=== PATIENT | male | born 1985 | race American Indian/Alaskan Native ===

== ENCOUNTER 2020-06-20 13:10 | Emergency (ER) | payer SELFPAY ==
--- NOTE | 2020-06-20 13:31 | Emergency Department Report ---
ED Lower Extremity HPI - General Stated Complaint: LT LEG INJURY Time Seen by Provider: 06/20/20 13:30 Source: patient - History of Present Illness Initial Comments: 35 yr old male presents to ED c.o Left thigh and left knee pain. He states he accidentally fell down some steps, at home, last night. He states he was walking down steps when he missed one and fell. He states he thinks he may have fallen down about 7 steps. He denies head injury. He reports swelling and bruising to left thigh. He states pain is worse with ambulation and movement. He took advil last night but without much relief. Complaint: thigh injury, knee injury -: Sudden - Related Data Previous Rx's Medication Instructions Recorded Last Taken Type Ibuprofen [Motrin] 800 mg PO Q8HR PRN #30 tablet 06/20/20 Unknown Rx Allergies Allergy/AdvReac Type Severity Reaction Status Date / Time No Known Allergies Allergy Verified 06/20/20 13:28 ED Review of Systems ROS: Stated complaint: LT LEG INJURY Other details as noted in HPI Comment: All other systems reviewed and negative Respiratory: denies: cough, shortness of breath, wheezing Cardiovascular: denies: chest pain, palpitations Musculoskeletal: joint swelling, arthralgia, myalgia Neurological: denies: headache, weakness, paresthesias Psychiatric: denies: anxiety, depression Hematological/Lymphatic: denies: easy bleeding, easy bruising ED Past Medical Hx - Medications Home Medications: Home Medications Medication Instructions Recorded Confirmed Last Taken Type Ibuprofen [Motrin] 800 mg PO Q8HR PRN #30 tablet 06/20/20 Unknown Rx ED Physical Exam - General Limitations: No Limitations General appearance: alert, in no apparent distress - Head Head exam: Present: atraumatic, normocephalic, normal inspection - Neck Neck exam: Present: full ROM - Respiratory Respiratory exam: Absent: respiratory distress - Cardiovascular Cardiovascular Exam: Present: regular rate - Expanded Lower Extremity Exam Left Hip exam: Present: normal inspection, full ROM. Absent: tenderness Upper Leg exam: Present: full ROM, tenderness (Moderate lateral thigh), swelling (Mild ), abrasion (very superificial healing abrasion noted anterior thigh). Absent: laceration, ecchymosis, deformity, crepidus, dislocation, erythema Knee exam: Present: normal inspection, full ROM. Absent: tenderness, swelling, abrasion, laceration, ecchymosis, deformity, crepidus, dislocation, erythema, effusion - Neurological Exam Neurological exam: Present: alert, oriented X3, CN II-XII intact, normal gait, abnormal gait (mild limping gait) - Psychiatric Psychiatric exam: Present: normal affect, normal mood - Skin Skin exam: Present: intact ED Course Vital Signs 06/20/20 13:28 Temperature 98 F Pulse Rate 79 Respiratory 16 Rate Blood Pressure 125/82 O2 Sat by Pulse 100 Oximetry ED Lower Extremity MDM - Radiology Data Radiology results: report reviewed Findings [facility] [address] [place] [address] XRay Report Signed Patient: LATA SHARPE JR MR#: [id number] : 1985 Acct:[id number] Age/Sex: 35 / M ADM Date: 06/20/20 Loc: ED Attending Dr: Ordering Physician: MARCELINA SU Date of Service: 06/20/20 Procedure(s): XR femur 2+V LT Accession Number(s): [id number] cc: MARCELINA SU Fluoro Time In Minutes: LEFT FEMUR 4 VIEW(S) INDICATION / CLINICAL INFORMATION: fall down steps/pain COMPARISON: None available. FINDINGS: BONES / JOINT(S): No acute fracture or subluxation. No significant arthritis. SOFT TISSUES: No significant abnormality. ADDITIONAL FINDINGS: None. IMPRESSION: No acute osseous abnormality. Signer Name: Steven Chung MD Signed: 06/20/2020 2:02 PM Workstation Name: [id number] Transcribed By: SS Dictated By: STEVEN CHUNG Electronically Authenticated By: STEVEN CHUNG Signed Date/Time: 06/20/20 1402 DD/ 1401 TD/TT: - Medical Decision Making Xray shows nothing acute. Discussed results, suspected dx and tx plan with patient. Pt expressed understanding of instructions and agreed with plan. Pt was stable a time of discharge. Critical care attestation.: If time is entered above; I have spent that time in minutes in the direct care of this critically ill patient, excluding procedure time. ED Disposition Clinical Impression: Contusion of thigh, left, Knee contusion Disposition: DC- TO HOME OR SELFCARE Is pt being admited?: No Does the pt Need Aspirin: No Condition: Stable Instructions: Contusion Additional Instructions: Rest, ice and elevate leg as often as possible for the next 2-3 days. Take the medication as prescribed. Follow up with Senior Test Analyst in 1-2 weeks if symptoms persist. Return to ED if symptoms changes or worsens in any way. Prescriptions: Ibuprofen [Motrin] 800 mg PO Q8HR PRN #30 tablet PRN Reason: Pain , Severe (7-10) Referrals: LATA LEVIN MD [Staff Physician] - 7-10 days Forms: Work/School Release Form(ED) Time of Disposition: 14:25
[2020-06-20 13:32] VITALS: BP 125/82
--- NOTE | 2020-06-20 14:07 | XRay Report ---
LEFT FEMUR 4 VIEW(S) INDICATION / CLINICAL INFORMATION: fall down steps/pain COMPARISON: None available. FINDINGS: BONES / JOINT(S): No acute fracture or subluxation. No significant arthritis. SOFT TISSUES: No significant abnormality. ADDITIONAL FINDINGS: None. IMPRESSION: No acute osseous abnormality. Signer Name: Anish Chung MD Signed: 06/20/2020 2:02 PM Workstation Name: [id number]
== END 2020-06-20 14:13 | disposition home or self-care (01) ==
LOC: ED 13:10
DX: S70.12XA Contusion of left thigh, initial encounter (principal); S80.00XA Contusion of unspecified knee, initial encounter; Z79.899 Other long term (current) drug therapy; W17.89XA Other fall from one level to another, initial encounter; Y93.89 Activity, other specified; Y92.89 Other specified places as the place of occurrence of the external cause; Y99.8 Other external cause status

== ENCOUNTER 2021-05-10 08:39 | Emergency (ER) | payer SELFPAY ==
--- NOTE | 2021-05-10 11:55 | Emergency Department Report ---
ED General Adult HPI - General Chief complaint: Skin Rash Stated complaint: RASH Time Seen by Provider: 05/10/21 11:47 Source: patient Mode of arrival: Ambulatory Limitations: No Limitations - History of Present Illness Initial comments: Patient is a 36 years old male with no significant past medical history. Patient presented to the ER complaining of generalized skin rash with itching started 3 days ago. Patient stated that he does not know what is causing it. He denied any fever or chills. No difficulty breathing or swallowing. - Related Data Previous Rx's Medication Instructions Recorded Last Taken Type Ibuprofen [Motrin] 800 mg PO Q8HR PRN #30 tablet 06/20/20 Unknown Rx Allergies Allergy/AdvReac Type Severity Reaction Status Date / Time No Known Allergies Allergy Verified 06/20/20 13:28 ED Review of Systems ROS: Stated complaint: RASH Other details as noted in HPI Comment: All other systems reviewed and negative Constitutional: denies: chills, fever Respiratory: denies: cough, shortness of breath, SOB with exertion Cardiovascular: denies: chest pain, palpitations Gastrointestinal: denies: abdominal pain, nausea Genitourinary: denies: dysuria Musculoskeletal: denies: back pain Skin: rash, pruritus. denies: lesions, change in color, change in hair/nails ED Past Medical Hx - Past Medical History Previous Medical History?: No - Surgical History Past Surgical History?: No - Social History Smoking Status: Never Smoker Substance Use Type: None - Medications Home Medications: Home Medications Medication Instructions Recorded Confirmed Last Taken Type Ibuprofen [Motrin] 800 mg PO Q8HR PRN #30 tablet 06/20/20 Unknown Rx ED Physical Exam - General Limitations: No Limitations General appearance: alert, in no apparent distress - Head Head exam: Present: atraumatic, normocephalic, normal inspection - ENT ENT exam: Present: normal exam, normal orophraynx, mucous membranes moist - Neck Neck exam: Present: normal inspection. Absent: tenderness, meningismus - Respiratory Respiratory exam: Present: normal lung sounds bilaterally - Cardiovascular Cardiovascular Exam: Present: regular rate, normal rhythm, normal heart sounds - GI/Abdominal GI/Abdominal exam: Present: soft, normal bowel sounds. Absent: distended, tenderness, guarding, rebound, rigid, mass, bruit, pulsatile mass, hernia - Back Exam Back exam: Present: full ROM - Neurological Exam Neurological exam: Present: alert, oriented X3, CN II-XII intact, normal gait. Absent: motor sensory deficit - Skin Skin exam: Present: warm, rash, erythema Critical care attestation.: If time is entered above; I have spent that time in minutes in the direct care of this critically ill patient, excluding procedure time. ED Disposition Clinical Impression: Acute allergic reaction Disposition: HOME / SELF CARE / HOMELESS Is pt being admited?: No Condition: Stable Instructions: Allergies, Adult, [id number] Referrals: PRIMARY CARE, [Primary Care Provider] - 3-5 Days Forms: Work/School Release Form(ED)
[2021-05-10 12:00] VITALS: BP 109/65
== END 2021-05-10 12:23 | disposition home or self-care (01) ==
LOC: ED 08:39
DX: T78.40XA Allergy, unspecified, initial encounter (principal); Y92.89 Other specified places as the place of occurrence of the external cause
CPT/HCPCS: 99281

== ENCOUNTER 2021-09-15 23:29 | Emergency (ER) | payer SELFPAY | END 2021-09-15 23:35 | disposition left against medical advice (07) | LOC: ED 23:29 | DX: S61.211A Laceration without foreign body of left index finger without damage to nail, initial encounter (principal); Z53.21 Procedure and treatment not carried out due to patient leaving prior to being seen by health care provider; X58.XXXA Exposure to other specified factors, initial encounter; Y93.89 Activity, other specified; Y92.89 Other specified places as the place of occurrence of the external cause; Y99.8 Other external cause status ==

== ENCOUNTER 2021-09-21 04:32 | Emergency (ER) | payer SELFPAY ==
[2021-09-21 04:45] VITALS: BP 138/78
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
== END 2021-09-21 10:00 | disposition home or self-care (01) ==
LOC: ED 04:32
DX: S61.211A Laceration without foreign body of left index finger without damage to nail, initial encounter (principal); X58.XXXA Exposure to other specified factors, initial encounter; Y93.89 Activity, other specified; Y92.89 Other specified places as the place of occurrence of the external cause; Y99.8 Other external cause status
CPT/HCPCS: 99282